=== PATIENT | female | born 1965 | race Hispanic/Latino ===

== ENCOUNTER 2017-01-22 06:34 | Day surgery (SDC) | payer MEDICAID ==
[2017-01-22 06:49] VITALS: BMI 28.1
[2017-01-22 07:05] VITALS: RESP 20
[2017-01-22] MEDS ORDERED: Propofol 10 mg/ml Inj (20 ML) ONE (07:11)
[2017-01-22] MEDS ORDERED: ePHEDrine 50 mg/ml Inj ONE (07:11)
[2017-01-22] MEDS ORDERED: Succinylcholine 200 mg/10 ml Inj IV ONE (07:12)
[2017-01-22] MEDS ORDERED: Rocuronium 10 mg/ml (5 ml) ONE (07:12)
[2017-01-22] MEDS ORDERED: Lactated Ringer's 1,000 ML IV ONE (07:21)
[2017-01-22] MEDS ORDERED: Chlorhexidine Gluconate 2OZ GEL TP ONE (07:25)
[2017-01-22] MEDS ORDERED: Bupivacaine 0.5% Inj(30mL) ONE (07:56)
[2017-01-22] MEDS ORDERED: SENSORCAINE 0.5% W/EPINEPHRINE 50ML MDV IJ ONE (08:02)
[2017-01-22] MEDS ORDERED: Midazolam 2 MG/2 ML VIAL ONE (08:30)
--- NOTE | 2017-01-22 08:32 | CARD ---
APPROVED REPORT EKG Measurement Heart [id number] <Conclusion> Normal sinus rhythm Normal ECG
[2017-01-22] MEDS ORDERED: Bupivacaine-Epi 0.5%-1:200,000 PF Inj IJ ONE (08:45)
[2017-01-22] MEDS ORDERED: SULFANILAMIDE (AVC) VAG CREAM VG ONE (08:55)
--- NOTE | 2017-01-22 09:18 | PCM.OP ---
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 Cyscocele. Hypermobile urethra Post-Operative Diagnosis: Stress urinary incontinence. Cyscocele. Hypermobile urethra Indication for Surgery: worsening urinary incontinence, stress urinary incontinence Operative Findings: Hypermobile urethra, adequate epical prolapse, normal appearing bladder anatomy as per cystosocopy at the end of the procedure Procedure/Operation Description: Midurethral sling. Diagnostic cystoscopy. Detailed operative report. This is a 51 years old female with long-standing and worsening symptoms of stress urinary incontinence for many years. The patient reported this symptoms to be debilitating and adversely affecting her quality of life. The patient is reporting leakage of urine upon any exertion, coughing sneezing. For several years these symptoms of severe leakage of urine on exertion have worsened. A complete work up in the office which included an ultrasound and urodynamic study revealed a clear picture of stress urinary incontinence. Following the workup and long discussion or the surgical vs conservative options, the patient had a long period of conservative management which included weight loss, Kegel exercises, and pelvic floor rehabilitation exercises. The patient failed conservative managment. A decision was made to proceed with a mid urethral sling procedure using mesh material. The patient underwent total robotic hysterectomy AND vaginal suspension to correct uterine prolapse. After a deteiled discussion regarding the pros and cons of sling prodedure and the utilization of mesh material, all risks were reviewed including, risk of infection, mesh errosion, pain and dyspareunia. In addition, the FDA warning about mesh utilization for prolapse and incontinence surgery was reveiwed in details, and specific written consent was obtained. The patient elected to proceed with a midurethral sling today fully understanding the risk associated with utilizing mesh material. Other alternatives were also offered to the patient, including a biological graft such as porcine sling as well as the patient owns fascia as sling material, she elected to proceed with a mesh sling despite associated risks. After proper consent was obtained from the patient, patient was taken to the operating room where general anesthesia was obtained without difficulty. She was placed in the dorsal lithotomy position, her legs were placed in adjustable Tristan stirrups, careful attention was placed not to over flex or over rotate The lower extremities. Wick catheter was inserted under sterile conditions. She was prepped and draped appropriately for a mid urethral sling procedure. The anterior vaginal wall over the midurethral area was grasped with a pair of Allis clamps and tenting the vaginal wall from the underlying urethra. Local anesthetic solution of 0.25% Marcaine with epinephrine diluted 1:1 was used to infiltrate the periurethral space. A total of 20 cc was utilized. Using a scalpel, a midurethral vertical incision about 1 cm was made through the vaginal epithelium and periurethral fascia. Careful lateral sharp dissection using Metzenbaum scissors towards the inferior pubic ramus to eventually allowe the sling graft to lie flat against the urethra. Next , the sling mesh was loaded onto the needle tip. The needle tip was inserted through one side of the incision towards the medial edge of the obturator foramen approximately 45 degrees of the horizontal plane. Using an arching motion, the needle tip was advanced through pushing the obturator internus muscle. The needle was released from the graft and loaded on the other side of the sling ready for deployment to the contralateral side. Ensuring the sling is flat on the urethra and not twisted, the needle was advanced in an arching motion towards the obturator internus muscle on the opposite site. Attention was readdressed to allow a flat placement with tension- free sling on the midurethra. Following saline irrigation and good hemostasis was noted, the vaginal mucosa was closed with 2-0 Vicryl in a locking fashion. At this time, the Wick catheter was removed and a diagnostic cystoscopy was performed. The bladder was distended with about 300 cc of fluid. Both ureteral orifices were noted to be fluxing urine normally. The trigone was normal. There were no noted abnormalities with any evidence of any compromise of the lower urinary tract with mesh material, sutures or instruments. The patient emerged from general anesthesia without any difficulty. The patient was taken to the recovery room in stable condition. Prior to incision patient received prophylactic antibiotics , prior to closure sponge lap and needle counts are correct x2. The sling used for this procedure was a [place] scientific mini sling, single incision polypropylene mesh sling (Solyx). Estimated Blood Loss: 10cc Blood Replaced: none Sponge/Instrument Count: correct x2 Drains: none Complications: None Specimen: none Discharge & Condition: discharge home same day once criteria met.
[2017-01-22] MEDS ORDERED: HYDROmorphone 0.5 mg/0.5 ml ISec IVP PRN (09:19)
[2017-01-22] MEDS ORDERED: Oxycodone/Acetaminophen 5/325 mg Tab PO PRN (09:23)
--- NOTE | 2017-01-22 09:30 | PCM.SURG1 ---
Surgeon's Initial Post Op Note - Surgeon's Notes Surgeon: armin balderas md Litigation Associate: arian wu Type of Anesthesia: General Endo, Local Pre-Operative Diagnosis: SCOTT Operative Findings: hypermobile urethra Post-Operative Diagnosis: SCOTT (stress urinary incontinence). hyper mobile urethra Operation Performed: Mid urethral sling. diagnostic cystoscopy Specimen/Specimens Removed: none Estimated Blood Loss: EBL {In ML}: 10 Blood Products Given: N/A Drains Used: No Drains Post-Op Condition: Good Date of Surgery/Procedure: 01/22/17 Time of Surgery/Procedure: 09:29
[2017-01-22 11:41] VITALS: TEMP 98
[2017-01-22 14:03] VITALS: BP 130/80; PULSE 80; O2SAT 99
== END 2017-01-22 12:40 | disposition home or self-care (01) ==
LOC: H.OPSURG 06:34
PROVIDERS: ATTEND Obstetrics & Gynecology
DX: N39.3 Stress incontinence (female) (male) (principal); N36.41 Hypermobility of urethra; N81.10 Cystocele, unspecified; Z90.710 Acquired absence of both cervix and uterus
CPT/HCPCS: 57288; 93005; C1771; J0330; J0690; J2001; J2250; J2405; J2704; J3010; J7120